=== PATIENT | male | born 1960 | race Caucasian/White ===

== ENCOUNTER → 2016-10-10 | Outpatient (REF) ==
[~2016-10-10] MED LIST: 00186-0370-20 IH; ASPIRIN 32325 MG/TAB PO; DOXYCYCLINE 10100 MG PO; IPRATROPIUM BROM3 M1 IH; K-DUR 10 MEQ T10 MEQ PO; LASIX 40MG TABL40 MG PO; MOBIC 7.5MG7.5 MG PO; NEURONTIN600 MG/TAB PO; NORCO 325 MG-101 TAB PO; NORCO 325 MG-51 TAB PO; PREDNISONE20 MG PO; PRINIVIL10 MG PO; PROAIR HFA0.09 MG/AC IH; PROVENTIL0.09 MG/A1 IH; TAMIFLU 75MG75 MG PO; TENORMIN100 MG PO; ZOCOR 20MG20 MG PO
[2016-10-10 16:14] LABS: THYROID STIMULATING HORMONE < 0.015 uIU/mL (0.465-4.680)
== END ==
LOC: ZLAB.WCH 14:54
PROVIDERS: Family Medicine
DX: Z01.89 Encounter for other specified special examinations (principal)

== ENCOUNTER → 2016-10-18 | Outpatient (REF) | LOC: ZLAB.WCH 10:37 | DX: Z01.89 Encounter for other specified special examinations (principal) ==

== ENCOUNTER → 2016-12-13 | Outpatient (REF) ==
[2016-12-13 17:28] LABS: ADJUSTED CALCIUM 9.9 mg/dL (8.4-10.2); ALBUMIN 2.3 gm/dL (3.5-5.0); BILIRUBIN,TOTAL 0.9 mg/dL (0.0-1.0); CALCIUM 8.5 mg/dL (8.4-10.2); CREATININE, serum 0.6 mg/dL (0.66-1.25); TOTAL PROTEIN 5.3 gm/dL (6.4-8.2)
[2016-12-13 17:37] LABS: POTASSIUM 2.4 mmol/L (3.4-5.0)
[2016-12-13 17:58] LABS: THYROID STIMULATING HORMONE 0.171 uIU/mL (0.465-4.680)
== END ==
LOC: ZLAB.WCH 17:18
PROVIDERS: Family Medicine
DX: Z01.89 Encounter for other specified special examinations (principal)

== ENCOUNTER → 2017-01-04 | Outpatient (REF) | LOC: ZLAB.WCH 10:42 | DX: Z01.89 Encounter for other specified special examinations (principal) ==